=== PATIENT | female | born 1930 | race Caucasian/White ===

== ENCOUNTER 2018-07-15 11:36 | Inpatient (IN) | payer MEDICARE ==
--- NOTE | 2018-07-15 12:26 | RAD ---
2 VIEW RIGHT KNEE SERIES: Date: 07/15/18 INDICATION: Deformity with pain and injury. FINDINGS: There is a comminuted displaced and angulated distal right femoral fracture with approximately one sh aft width posterior displacement of major distal fracture fragment and apex lateral angulation. There are adjacent butterfly fracture fragments. Osseous structures are demineralized. IMPRESSION: Distal right femoral fracture with displacement, angulation, and comminution. Orthopedic consultation is advised. POS: FREIDA
--- NOTE | 2018-07-15 12:27 | RAD ---
2 VIEW RIGHT LEG SERIES: Date: 07/15/18 INDICATION: Pain with deformity and injury. FINDINGS: No acute fracture or dislocation of the tibial or fibula of the right lower extremity. There is osseo us demineralization. Vascular calcification present. IMPRESSION: No fracture of the right leg is identified. POS: FREIDA
--- NOTE | 2018-07-15 12:28 | RAD ---
2 VIEW RIGHT FEMUR: Date: 07/15/18 INDICATION: Pain with injury and deformity. FINDINGS: There is a distal right femoral fracture which is described on the concurrent knee radiograph as it i s located distally. Fracture is displaced and comminuted. Fracture site is centered at the distal james physis. Scattered degenerative change and osseous demineralization present. There is vascular calcification. IMPRESSION: Displaced and comminuted distal right femoral diaphyseal fracture. POS: FREIDA
[2018-07-15 12:56] LABS: Hemoglobin 13.2 g/dL (12.0-16.0); Mean Corpuscular HGB CONC 32.2 g/dL (32.0-36.0); Mean Corpuscular Hemoglobin 32.5 pg (27.0-31.0); Platelet Count 448 thou/uL (130-400); RBC Distribution Width 13.3 % (11.5-14.5); Red Blood Cell (RBC) Count 4.05 mill/uL (4.20-5.40); White Blood Cell (WBC) Count 15.4 thou/uL (4.8-10.8)
[2018-07-15 12:57] LABS: INR-International Normal Ratio 1.1; PTT 28.7 SEC (22.9-36.1); Prothrombin Time 13.9 SEC (12.0-14.7)
--- NOTE | 2018-07-15 13:06 | RAD ---
FRONTAL VIEW CHEST: INDICATIONS: Pain. FINDINGS: There is hyperinflation of the lungs with interstitial prominence. The cardiac silhouette is accentu ated by the portable technique. There is mild vascular prominence at each hilar region. Osseous deg enerative change and vascular calcification is present. IMPRESSION: Mild interstitial prominence of each lung may relate to chronic interstitial lung disease or, alterna tively, a mild component of edema. Correlate clinically. POS: FREIDA
[2018-07-15 13:13] LABS: ALT (SGPT) 21 U/L (8-55); AST (SGOT) 23 U/L (5-34); Albumin 4.3 g/dL (3.4-4.8); Alkaline Phosphatase 111 U/L (40-150); Anion Gap 13 mmol/L (10-20); BUN (Urea Nitrogen) 13 mg/dL (9.8-20.1); Band 17 % (5-11); Bilirubin, Total 0.9 mg/dL (0.2-1.2); Calc. Creatinine Clearance 0 mL/min (70-130); Calcium 9.3 mg/dL (7.8-10.44); Carbon Dioxide 29 mmol/L (23-31); Chloride 103 mmol/L (98-107); Estimated GFR-MDRD 64; Globulin 2.9 g/dL (2.4-3.5); Glucose 118 mg/dL (83-110); Lymphocytes 5 % (21-51); MDiff Complete? YES; Monocytes 5 % (0-10); Neutrophil 72 % (42-75); PLT Morphology Comment Appears Increased; Potassium 3.7 mmol/L (3.5-5.1); Protein, Total 7.2 g/dL (6.0-8.3); RBC Morphology Normal; Reactive Lymphocytes 1 % (0-10); Sodium 141 mmol/L (136-145)
[2018-07-15] MEDS ORDERED: Fentanyl 100 MCG/2 ML VIAL ONE (13:27)
[2018-07-15] MEDS ORDERED: CEFAZOLIN/Water 2 GM/20 ML SYRINGE SLOW IVP SCH (14:00)
[2018-07-15] MEDS ORDERED: Dextrose 5% in Water 1,000 ML IV PRN (14:48)
[2018-07-15] MEDS ORDERED: Ondansetron PF 4 MG/2 ML Vial IVP PRN (14:48)
[2018-07-15] MEDS ORDERED: Ondansetron ODT 4 MG TAB PO PRN (14:48)
[2018-07-15] MEDS ORDERED: Dextrose 50% Abboject 50 ML SYRINGE SLOW IVP PRN (14:48)
[2018-07-15] MEDS ORDERED: traMADol HCl 50 MG TAB PO PRN ×2 (14:51)
[2018-07-15] MEDS ORDERED: Acetaminophen 500 MG TAB PO SCH (15:00)
--- NOTE | 2018-07-15 15:30 | HP ---
DATE OF ADMISSION: 07/15/2018 HISTORY OF PRESENT ILLNESS: The patient is an 88-year-old woman who lives independently. The patient is highly functioning. At daily activities, I includes being able to take care of chores at home, she makes own meals, does all laundry. She is able to ambulate for 2-3 blocks without feel ing any shortness of breath. She does drive herself to her errands. The patient reported today walking at home when all of a sudden right knee "give away" and she fell d own without any head trauma. She immediately felt a sharp pain to her right leg which was obviously deformed. She was unable to b ear weight and as a result, she called through the telephone and called her son. She was then yakov t by ground EMS to the emergency department where she was evaluated. She had received some intraveno us analgesics prior to my visit in the emergency department. Currently, she denies any pain as right leg has been immobilized in a splint. Her Aviva coma scale is 15. His adult son and daughter-in- law area bedside. PAST MEDICAL HISTORY: She denies any previous medical problems. PAST SURGICAL HISTORY: The patient had 94 ago and has had no other surgeries since. SOCIAL HISTORY: She lives independently. She denies any cigarette smoking, ethanol did it or illici t drug abuse. FAMILY HISTORY: Noncontributory for this patient's age. PREHOSPITAL MEDICATIONS: None. ALLERGIES: Patient denies any known drug allergies. REVIEW OF SYSTEMS: A 10-point review of systems is essentially unremarkable except for as stated in past medical history and chief complaint. PHYSICAL EXAMINATION: GENERAL: This reveals an 88-year-old who appears stated age and is in no acute distress at the time of my evaluation. VITAL SIGNS: Includes blood pressure 157/84, pulse is 79, respiratory rate is 17, temperature is 97. 4 degrees Fahrenheit. Oxygen saturation is 98% on room air. 1. Pain level initially was 5/10. Currently, she rates her pain at 09/29/2017 retained. HEENT: Reveals normocephalic and atraumatic. Pupils are equal, round, and reactive to light and acc ommodation. Extraocular muscles are intact bilaterally. No sclerae icterus is present. Oral mucosa is pink and moist. No lesions are noted. NECK: Supple. No palpable lymphadenopathy or thyromegaly present. She has cervical spine is nonten eldon to palpation, active or passive range of motion. CHEST: Chest wall is stable. No gross deformities or step-offs are present. HEART: Reveals regular rate and rhythm, no murmurs or gallops auscultated. LUNGS: Clear to auscultation bilaterally. Breathing is regular and unlabored. ABDOMEN: Soft, nontender, nondistended. Liver and spleen nonpalpable below costal margin. EXTREMITIES: Reveal 2+ radial and pedal pulses bilaterally. She has no ankle edema present. right leg. There is a right knee immobilizer in place with provide the patient with adequate pain relief a nd comfort. MUSCULOSKELETAL: Reveals 5/5 muscle strength in bilateral upper and left lower extremities. Range o f motion about the right lower extremity was not performed due to obvious deformity. Thoracic and patel mbar spine are nontender to palpation. NEUROLOGICAL: Cranial nerves II-XII grossly intact bilaterally. The patient has no focal neurologic deficits present. PERTINENT LABORATORY DATA: Today includes a CBC with 15,400 white blood cells, hemoglobin and hemato crit is 13.2 and 40.9 respectively. Platelet count is 448,000. PTT and INR normal at 28.7 seconds and 1.1 respectively. Metabolic profile: Sodium 141, potassium 3 .7, chloride is 103, bicarbonate is 29, BUN is 13, creatinine 0.84, glucose is 118, total bilirubin i s 0.9, AST and ALT are normal at 23 and 21 respectively. Alkaline phosphatase is also normal at 111. I have personally reviewed all radiographic studies including a chest x-ray which is unremarkable for any acute pathology. X-ray of the right femur and knee were obtained and this shows complete displa basia comminuted distal one-third right supracondylar femur fracture. X-ray of the right tibia and fib maria esther are unremarkable for any fractures or dislocation. IMPRESSION: 1. Status post ground level fall. 2. Complete displaced distal one-third right supracondylar femur fracture. PLAN: 1. Orthopedic surgical consultation regarding the lower extremity fracture. 2. We will initiate nonpharmacological chemical VTE prophylaxis and provide patient with adequate pa in management. The patient will be admitted to the surgical floor while we will continue with physic al and occupational therapy as appropriate. 3. Postoperatively, we will ask PM&R to evaluate the patient for possible inpatient rehabilitation p ost-discharge. 4. We will also provide the patient with a prophylaxis against gastritis. The above findings and pl an have been discussed with the patient and her family at bedside. They all indicated understanding of information given. I answered their questions. The patient has given consent for this admission.
[2018-07-15 16:49] VITALS: BMI 21.4
[2018-07-15] MEDS: Acetaminophen 500 MG TAB PO SCH ×3 (17:40→23:53)
--- NOTE | 2018-07-15 18:39 | CON-2 ---
DATE OF CONSULTATION: 07/15/2018 REASON FOR CONSULTATION: We were asked by ER Trauma to see the patient. HISTORY OF PRESENT ILLNESS: The patient lives alone, was in her normal state of health when she stum bled and broke her right femur. The patient crawled across the floor to call family members. There was no loss of consciousness. She does not recall any other injuries. Only positive x-rays were her right femur. No numbness and tingling in the leg. Actually, the pain is fairly tolerable. PAST MEDICAL HISTORY: She is healthy, has not seen a regular doctor for approximately 40 years per t he patient. PAST SURGICAL HISTORY: She had a little skin cancer removed a year or so ago on her left forearm. MEDICATIONS: None. ALLERGIES: None. FAMILY HISTORY: Noncontributory. SOCIAL HISTORY: Retired. passed a few years back. No alcohol or nicotine. Drinks coffee d aily. REVIEW OF SYSTEMS: Healthy. Denies any chest pain, shortness of breath. No bowel or bladder proble ms. She continues to live alone and other than her right leg hurting mildly, she is doing okay. Res t of the review of systems is negative. PHYSICAL EXAMINATION: GENERAL: Well-nourished, well-developed female, resting in ER in [facility], in no acute distress. Spee ch clear. Affect is quite pleasant. Answering questions appropriately. She is alert and oriented x 3. Family is at bedside. HEENT: Normal exam. Face symmetric. Tongue midline. NECK: Supple. Trachea midline. RESPIRATORY: No distress. ABDOMEN: Soft, nontender. EXTREMITIES: Upper extremities, equal size, shape, symmetry, normal bulk and tone. Bilateral lower extremities, equal size, shape, symmetry, normal bulk and tone with the exception of her right femur area. It is a little tender, but once we straightened her out after a small dose of fentanyl, she di d not have much pain with straightening her leg and putting the immobilizer on. Pulses are equal to bilateral lower extremities as were sensations. ASSESSMENT: Fall with ensuing right femur fracture. PLAN: I spoke with the family extensively about risks and benefits of surgery, outcomes of surgery. The patient and family understand. Their questions have been answered. They are amenable to go for th with surgery. I also discussed with the family briefly that there may be some need for inpatient rehab or skilled type of rehab. The patient is not overtly happy with this discussion, but she has t o be safe before she goes home and I let the family know this also. I informed the family that she w ill get some physical therapy and occupational therapy while she is in here, get case management to s ee her, probably evaluated per rehab and we will see how she does after surgery. I do think and I clark ve reiterated this to the family and the patient that she will probably need some aftercare so she is safe to go home. We will discuss this again after surgery.
[2018-07-15] MEDS: Famotidine 20 MG TAB PO SCH (20:07)
[2018-07-15] MEDS: Famotidine/PF 20 mg/2ml Vial SLOW IVP SCH (20:07)
[2018-07-16] MEDS: Acetaminophen 500 MG TAB PO SCH ×4 (04:27→23:29)
[2018-07-16 05:18] LABS: #Basophils 0.1 thou/uL (0.0-0.2); #Monocytes 0.6 thou/uL (0.11-0.59); #Neutrophils 3.8 thou/uL (1.40-6.50); %Eosinophils 0.9 % (0.0-10.0); %Lymphocytes 17.5 % (21.0-51.0); %Monocytes 10.9 % (0.0-10.0); %Neutrophils 68.6 % (42.0-75.0); Mean Corpuscular HGB CONC 32.9 g/dL (32.0-36.0); Mean Corpuscular Hemoglobin 33.1 pg (27.0-31.0); Mean Platelet Volume 7.1 fL (7.4-10.4); Platelet Count 312 thou/uL (130-400); RBC Distribution Width 13.2 % (11.5-14.5); Red Blood Cell (RBC) Count 3.33 mill/uL (4.20-5.40); White Blood Cell (WBC) Count 5.5 thou/uL (4.8-10.8)
[2018-07-16 05:28] LABS: Anion Gap 10 mmol/L (10-20); BUN (Urea Nitrogen) 12 mg/dL (9.8-20.1); Calc. Creatinine Clearance 40 mL/min (70-130); Calcium 8.6 mg/dL (7.8-10.44); Carbon Dioxide 27 mmol/L (23-31); Chloride 105 mmol/L (98-107); Estimated GFR-MDRD 72; Glucose 94 mg/dL (83-110); Potassium 3.7 mmol/L (3.5-5.1); Sodium 138 mmol/L (136-145)
[2018-07-16] MEDS: Famotidine/PF 20 mg/2ml Vial SLOW IVP SCH (08:51)
[2018-07-16] MEDS: Famotidine 20 MG TAB PO SCH ×2 (08:51→20:12)
[2018-07-16] MEDS: Sodium Chloride 0.9% 1,000 ML IV SCH (11:18)
[2018-07-16] MEDS ORDERED: ePHEDrine/0.9% NaCl/PF SYRINGE 50 mg/10 ml ONE (11:51)
[2018-07-16] MEDS ORDERED: Ondansetron PF 4 MG/2 ML Vial ONE (11:51)
[2018-07-16] MEDS ORDERED: Lidocaine 1% PF 5 ML VIAL ONE (11:51)
[2018-07-16] MEDS ORDERED: PROPOFOL 200 MG/20 ML VIAL ONE (11:51)
--- NOTE | 2018-07-16 12:55 | PRG ---
DATE OF SERVICE: 07/16/2018. SUBJECTIVE: Ms. Artis is an 88-year-old female complaining all of her own ADLs, who was admitted to the Trauma Service yesterday onto the surgery anne with a right distal femur fracture secondary to fall. The patient is scheduled for the operative theater at 1400 hours today. She is in good spirits, hemodynamically stable. She initially had a leukocytosis that has subsequently resolved. Her hemoglobin has remained stable. Her chemistry is unremarkable this morning. She is 97% on room air and vital signs have been stable. Pain seems to be controlled and she is n.p.o. after midnight. PHYSICAL EXAMINATION: VITAL SIGNS: Blood pressure is 146/69, temperature is 97.9. She is breathing 16 times a minute on room air and heart rate of 70 with saturation of 97%. GENERAL: This is an 88-year-old female sitting up in bed, in no acute distress. HEENT: Normocephalic, atraumatic. Trachea is midline. RESPIRATORY: Equal rise and fall. No respiratory distress. CARDIOVASCULAR: Regular rate and rhythm. ABDOMEN: Soft. MUSCULOSKELETAL: She has pain to the right leg. She does have sensation in all extremities and pulses noted with a warm distal extremities, specifically in the right lower. NEUROLOGIC: Alert and oriented to person, place, time, and event. No deficits are appreciated. Family is at the bedside. LABORATORY DATA: White blood cell count is 5.5, platelets 312, hemoglobin is 11.0 and hematocrit is 33.5. Sodium is 138, potassium is 3.7, chloride is 105, CO2 is 27, BUN is 12, creatinine 0.76 and a glucose of 94. ASSESSMENT AND PLAN: 1. Distal femur fracture. Orthopedics planning operative repair today at 1400 hours. 2. Add normal saline at 75 mL per hour until taking p.o. after surgery to gentle hydrate Ms. Artis. 3. Monitor hemodynamics and we will repeat lab work in the morning x1. If this remains stable will suspend. 4. PT, OT after surgery, start dvt prophy after surgery, likely tomorrow. 5. Continue all other supportive care, pain management. If patient tolerates we will be able to start her on regular diet and suspend the IV fluids after surgery today. This patient was seen with Dr. Petersen and the plan can be updated as needed. MICHAELD
[2018-07-16] MEDS ORDERED: Acetaminophen 500 MG TAB ONE (14:07)
[2018-07-16] MEDS ORDERED: Fentanyl 100 MCG/2 ML VIAL ONE (14:49)
[2018-07-16] MEDS ORDERED: CEFAZOLIN/Water 2 GM/20 ML SYRINGE ONE (14:51)
[2018-07-16] MEDS ORDERED: Promethazine HCl 25 MG/ML VIAL SLOW IVP PRN (16:26)
[2018-07-16] MEDS ORDERED: Promethazine HCl 25 MG/ML VIAL IM PRN (16:26)
[2018-07-16] MEDS ORDERED: Ondansetron HCl/PF 4 MG/2 ML Vial IVP PRN (16:26)
--- NOTE | 2018-07-16 17:55 | RAD ---
RIGHT FEMORAL RADIOGRAPHS TWO VIEWS: 07/16/18 PROVIDED CLINICAL HISTORY: Postop. FINDINGS: Comparison 07/15/18. Spot fluoroscopic frontal and lateral views of the right femur demonstrate retrograde femoral nail wi th proximal and distal interlocking screws transfixing previously described femoral diaphyseal fractu re with resultant improved alignment. IMPRESSION: As above. POS: FREIDA
--- NOTE | 2018-07-16 21:28 | OP ---
DATE OF PROCEDURE: 07/16/2018 SURGEON: Ramesh Ortiz M.D. CASINO ATTENDANT: Tam Sánchez PA-C. ESTIMATED BLOOD LOSS: 100 mL. COMPLICATIONS: None. INDICATIONS: Ms. Artis is an 88-year-old female who fell. She fractured the right distal femur. She was indicated for intramedullary nail to restore anatomic alignment and promote healing. Risks have been reviewed in detail. She elected to proceed with the operation. DESCRIPTION OF PROCEDURE: The patient was identified in the preoperative holding area. Her correct extremity was marked. She was carried to the operating room. She was positioned supine. General an esthesia was induced. A multidisciplinary timeout was performed. The right lower extremity was prep ped and draped in sterile fashion. We began the procedure with a small incision over the knee. It dissected down to the subcutaneous ti ssues. A medial parapatellar arthrotomy was created. We then inserted a guidewire in the trochlea u sing intraoperative x-ray. We overdrilled the guidewire. We then placed our ball-tip guidewire past the fracture. At this point, we proceeded to reduce the fracture and held our reduction manually. We then reamed from an 8.5 reamer up to a size 12. At this point, we placed a 340 mm x 11 mm nail. We placed 2 distal cross lock screws and 1 proximal cross lock screw rigidly fixing the bone. At thi s point, we took final x-ray images in orthogonal planes. We then proceeded to close all wounds. We thoroughly irrigated. We closed with 0 Vicryl suture, 2-0 Vicryl suture and nylon for the skin. A sterile dressing was applied. The patient was taken to the recovery room in good condition. IMPLANTS: Synthes retrograde femoral nail size 340 mm x 11 mm with cross lock screws.
[2018-07-17] MEDS: Sodium Chloride 0.9% 1,000 ML IV SCH (00:23)
[2018-07-17] MEDS: Acetaminophen 500 MG TAB PO SCH ×4 (05:09→23:25)
[2018-07-17 07:43] LABS: #Basophils 0.1 thou/uL (0.0-0.2); #Lymphocytes 1.1 thou/uL (1.20-3.40); #Monocytes 0.5 thou/uL (0.11-0.59); #Neutrophils 5.6 thou/uL (1.40-6.50); %Basophils 1.7 % (0.0-1.0); %Eosinophils 0.6 % (0.0-10.0); %Lymphocytes 14.5 % (21.0-51.0); %Monocytes 6.6 % (0.0-10.0); %Neutrophils 76.5 % (42.0-75.0); Hemoglobin 10.1 g/dL (12.0-16.0); Mean Corpuscular HGB CONC 33.5 g/dL (32.0-36.0); Mean Corpuscular Hemoglobin 33.5 pg (27.0-31.0); Mean Platelet Volume 6.6 fL (7.4-10.4); Platelet Count 244 thou/uL (130-400); RBC Distribution Width 13.4 % (11.5-14.5); White Blood Cell (WBC) Count 7.4 thou/uL (4.8-10.8)
[2018-07-17 08:02] LABS: Anion Gap 10 mmol/L (10-20); BUN (Urea Nitrogen) 13 mg/dL (9.8-20.1); Calc. Creatinine Clearance 40 mL/min (70-130); Calcium 8.3 mg/dL (7.8-10.44); Carbon Dioxide 26 mmol/L (23-31); Chloride 107 mmol/L (98-107); Estimated GFR-MDRD 72; Glucose 95 mg/dL (83-110); Magnesium 1.7 mg/dL (1.6-2.6); Phosphorus 2.8 mg/dL (2.3-4.7); Sodium 139 mmol/L (136-145)
[2018-07-17] MEDS ORDERED: Famotidine/PF 20 mg/2ml Vial SLOW IVP SCH (09:00)
[2018-07-17] MEDS ORDERED: Senokot 8.6 MG TAB PO SCH (13:15)
--- NOTE | 2018-07-17 16:20 | PRG ---
DATE OF SERVICE: 07/17/2018 SUBJECTIVE: The patient is hospital day #2, postop day #1, status post ground level fall in which dick betancur sustained a right distal femur fracture. She underwent open reduction internal fixation yesterday. She tolerated the procedure well. This morning, she is actually working with physical therapy. Wh viv Hayward came in the room, she is already transferred out of her bed to the bedside chair without difficu lty. For placement, the patient has chosen to go home with Home Health. We will start arranging thi s with the likelihood that the patient will be discharged to home tomorrow. PHYSICAL EXAMINATION: VITAL SIGNS: Temperature is 98.5, heart rate 62, blood pressure 130/67, respirations 13, oxygen satu ration 94% on room air. GENERAL: The patient is resting comfortably in a chair beside her bed. She is awake, alert, oriente d. HEENT: Unremarkable. LUNGS: Clear to auscultation with good inspiratory and expiratory effort. HEART: Regular rate and rhythm. ABDOMEN: Soft, flat, nontender with active bowel sounds. EXTREMITIES: Neurovascularly intact x4. Right lower extremity is in a knee immobilizer. LABORATORY DATA: White blood cell count 7.4, hemoglobin 10.1, hematocrit 30.0, platelets 244. Sodiu m 139, potassium 4.0, chloride 107, CO2 of 26, BUN 13, creatinine 0.76, glucose 95, magnesium 1.7, ph osphorus 2.8. There are no radiographs to review this morning. ASSESSMENT AND PLAN: 1. Status post ground level fall. 2. Status post open reduction internal fixation of right distal femur fracture. Plan will be to continue supportive care. Arranged home DME and [facility]
[2018-07-17] MEDS: Senokot 8.6 MG TAB PO SCH (21:34)
[2018-07-18 05:11] LABS: #Basophils 0.1 thou/uL (0.0-0.2); #Eosinphils 0.1 thou/uL (0.0-0.7); #Lymphocytes 1.1 thou/uL (1.20-3.40); #Monocytes 0.4 thou/uL (0.11-0.59); #Neutrophils 3.9 thou/uL (1.40-6.50); %Basophils 1.4 % (0.0-1.0); %Eosinophils 1.5 % (0.0-10.0); %Lymphocytes 19.4 % (21.0-51.0); %Monocytes 7.2 % (0.0-10.0); %Neutrophils 70.5 % (42.0-75.0); Hemoglobin 8.8 g/dL (12.0-16.0); Mean Corpuscular HGB CONC 33.1 g/dL (32.0-36.0); Mean Corpuscular Hemoglobin 33.6 pg (27.0-31.0); Mean Platelet Volume 7.1 fL (7.4-10.4); Platelet Count 184 thou/uL (130-400); RBC Distribution Width 13.2 % (11.5-14.5); Red Blood Cell (RBC) Count 2.61 mill/uL (4.20-5.40); White Blood Cell (WBC) Count 5.5 thou/uL (4.8-10.8)
[2018-07-18 05:18] LABS: Anion Gap 7 mmol/L (10-20); BUN (Urea Nitrogen) 15 mg/dL (9.8-20.1); Calc. Creatinine Clearance 40 mL/min (70-130); Calcium 8.1 mg/dL (7.8-10.44); Carbon Dioxide 28 mmol/L (23-31); Chloride 107 mmol/L (98-107); Estimated GFR-MDRD 72; Glucose 118 mg/dL (83-110); Magnesium 1.8 mg/dL (1.6-2.6); Phosphorus 2.6 mg/dL (2.3-4.7); Potassium 3.9 mmol/L (3.5-5.1); Sodium 138 mmol/L (136-145)
[2018-07-18] MEDS: Acetaminophen 500 MG TAB PO SCH ×4 (05:23→23:09)
[2018-07-18] MEDS: Bisacodyl 10 MG SUPP PR SCH (09:53)
[2018-07-18] MEDS: Senokot 8.6 MG TAB PO SCH ×2 (11:15→17:38)
[2018-07-18] MEDS ORDERED: Polyethylene Glycol 3350 17 GM Packet PO SCH (11:30)
[2018-07-18] MEDS: Docusate 100 MG CAP PO SCH (13:31)
--- NOTE | 2018-07-18 16:51 | PRG ---
DATE OF SERVICE: 07/18/2018 SUBJECTIVE: The patient is currently on the surgical floor. She is hospital day #3, postop day #2 s tatus post a ground level fall in which she sustained a right distal femur fracture. She underwent o pen reduction internal fixation of same. She tolerated this procedure well. She has been working [facility] physical and occupational therapy and this morning she is actually able to walk 18 feet. She stat es that her pain is controlled. She is tolerating a diet. The patient has chosen to go home with [facility] for her disposition. She does not quite appear ready to be going home yet though the famil y does say that they have all of her DME arranged. PHYSICAL EXAMINATION: VITAL SIGNS: Temperature is 98.1, heart rate 78, blood pressure 132/66, respirations 20, oxygen satu ration is 96% on room air. GENERAL: The patient is resting comfortably in bed. She is awake, alert, and oriented. HEENT: Unremarkable. LUNGS: Clear to auscultation with good inspiratory and expiratory effort. HEART: Regular rate and rhythm. ABDOMEN: Soft, flat, nontender with active bowel sounds. EXTREMITIES: Neurovascularly intact x4. Postop dressing is clean, dry, and intact. The patient is also mobilized in a knee immobilizer on the right lower extremity. LABORATORY DATA: White blood cell count 5.5, hemoglobin 8.8, hematocrit 26.5, platelets 184. Sodium 138, potassium 3.9, chloride 107, CO2 of 28, BUN 15, creatinine 0.76, glucose 118, magnesium 1.8, ph osphorus 2.6. There are no radiographs to review this morning. ASSESSMENT AND PLAN: 1. Status post ground level fall. 2. Status post open reduction internal fixation of right distal femur fracture. Plan be to continue supportive care. Once it was felt that the patient is safe to be discharged home , we will discharge her home. This could be as early as tomorrow or Friday. The evaluation and exam ination were discussed with Dr. Petersen this morning.
[2018-07-19] MEDS: Acetaminophen 500 MG TAB PO SCH ×2 (05:22→10:17)
[2018-07-19 07:43] VITALS: BP 150/66; TEMP 98.3
[2018-07-19] MEDS: Senokot 8.6 MG TAB PO SCH (08:43)
[2018-07-19] MEDS: Docusate 100 MG CAP PO SCH (08:44)
[2018-07-19] MEDS: Bisacodyl 10 MG SUPP PR SCH (08:44)
[2018-07-19] MEDS ORDERED: Polyethylene Glycol 3350 17 GM Packet PO SCH (09:00)
--- NOTE | 2018-07-25 13:41 | EKG ---
Test Reason : Blood Pressure : / mmHG Vent. Rate : 078 BPM Atrial Rate : 078 BPM P-R Int : 136 ms QRS Dur : 078 ms QT Int : 384 ms P-R-T Axes : 080 -09 089 degrees QTc Int : 437 ms Sinus rhythm with occasional Premature ventricular complexes Nonspecific ST and T wave abnormality Abnormal ECG Confirmed by JORDAN MCDANIEL DO ([id number]), magazine editor SYEDA PAULINO ([id number]) on 07/25/2018 1:41:11 PM Referred By: Confirmed By:JORDAN MCDANIEL DO
== END 2018-07-19 10:42 | disposition home health service (06) | DRG 482 ==
LOC: ERS 11:36 → SURG A 13:15 → SJJU 07-17 09:15 → SURG A 07-17 09:15
PROVIDERS: ADMIT Surgery; ATTEND Surgery
PROC: 0QSB06Z Reposition Right Lower Femur with Intramedullary Internal Fixation Device, Open Approach (ICD-10-PCS; principal; 2018-07-16)
DX: S72.451A Displaced supracondylar fracture without intracondylar extension of lower end of right femur, initial encounter for closed fracture (principal); W19.XXXA Unspecified fall, initial encounter; Y92.008 Other place in unspecified non-institutional (private) residence as the place of occurrence of the external cause; Z85.828 Personal history of other malignant neoplasm of skin
CPT/HCPCS: 36415; 51702; 71045; 76001; 80048; 80053; 83735; 84100; 85025; 85610; 85730; 86850; 86900; 86901; 93005; 96374; C1713; C1769; G8978-GP-CL; G8979-GP-CI; G8987-GO-CK; G8988-GO-CJ; J2001; J2405; J2704; J3010; S0028

== ENCOUNTER 2019-09-16 23:21 | Inpatient (IN) | payer MEDICARE ==
--- NOTE | 2019-09-16 23:50 | RAD ---
EXAM: AP pelvis INDICATIONS: Trauma. Fall with injury to hip COMPARISON: None. FINDINGS: Intertrochanteric fracture left hip with mild displacement. Pelvis appears intact. Intramed ullary sharad right femur. IMPRESSION: Left hip fracture
--- NOTE | 2019-09-16 23:51 | RAD ---
Left hip:2 views INDICATIONS:Injury with pain COMPARISON:None FINDINGS: Intertrochanteric fracture left hip with mild displacement. No soft tissue abnormality. IMPRESSION: Left hip fracture
--- NOTE | 2019-09-16 23:51 | RAD ---
Portable chest: HISTORY: Hip fracture COMPARISON: none FINDINGS: Lung beltran are clear. Heart and mediastinum appear unremarkable. Vascularity is normal. Visualized osseous structures unremarkable. IMPRESSION: No acute finding
[2019-09-17 00:02] LABS: #Basophils 0.2 thou/uL (0.0-0.2); #Eosinphils 0.1 thou/uL (0.0-0.7); #Lymphocytes 1.1 thou/uL (1.20-3.40); #Monocytes 0.6 thou/uL (0.11-0.59); #Neutrophils 8.9 thou/uL (1.40-6.50); %Basophils 1.5 % (0.0-1.0); %Eosinophils 0.8 % (0.0-10.0); %Lymphocytes 10.2 % (21.0-51.0); %Monocytes 5.7 % (0.0-10.0); %Neutrophils 81.9 % (42.0-75.0); Hemoglobin 13.4 g/dL (12.0-16.0); Mean Corpuscular Volume 94.2 fL (78.0-98.0); Platelet Count 555 thou/uL (130-400); RBC Distribution Width 12.5 % (11.5-14.5); White Blood Cell (WBC) Count 10.9 thou/uL (4.8-10.8)
[2019-09-17 00:13] LABS: Phosphorus 3.1 mg/dL (2.3-4.7)
[2019-09-17 00:15] LABS: ALT (SGPT) 15 U/L (8-55); AST (SGOT) 20 U/L (5-34); Albumin 4.4 g/dL (3.4-4.8); Alkaline Phosphatase 170 U/L (40-110); Anion Gap 14 mmol/L (10-20); BUN (Urea Nitrogen) 21 mg/dL (9.8-20.1); Bilirubin, Total 0.5 mg/dL (0.2-1.2); Calc. Creatinine Clearance 0 mL/min (70-130); Calcium 9.8 mg/dL (7.8-10.44); Carbon Dioxide 27 mmol/L (23-31); Chloride 103 mmol/L (98-107); Estimated GFR-MDRD 57; Globulin 2.8 g/dL (2.4-3.5); Glucose 131 mg/dL (83-110); Magnesium 2.2 mg/dL (1.6-2.6); Potassium 4.6 mmol/L (3.5-5.1); Protein, Total 7.2 g/dL (6.0-8.3); Sodium 139 mmol/L (136-145)
[2019-09-17] MEDS ORDERED: hydrALAZINE 20 MG/ML VIAL ONE (00:38)
[2019-09-17] MEDS ORDERED: Dextrose 5% in Water 1,000 ML IV PRN (00:49)
[2019-09-17] MEDS ORDERED: hydrALAZINE 20 MG/ML VIAL SLOW IVP PRN (00:49)
[2019-09-17] MEDS ORDERED: Dextrose 50% Abboject 50 ML SYRINGE SLOW IVP PRN (00:49)
[2019-09-17] MEDS ORDERED: Morphine 2 MG/ML SYRINGE SLOW IVP PRN (00:49)
[2019-09-17] MEDS ORDERED: Ondansetron PF 4 MG/2 ML Vial IVP PRN (00:49)
[2019-09-17] MEDS ORDERED: Cyclobenzaprine 10 MG TAB PO PRN (00:51)
[2019-09-17] MEDS ORDERED: traMADol HCl 50 MG TAB PO PRN (00:51)
[2019-09-17] MEDS ORDERED: Sodium Chloride 0.9% 1,000 ML IV SCH (01:00)
--- NOTE | 2019-09-17 01:22 | HP ---
TRAUMA SURGEON: Dr. Shin. CONSULTING PHYSICIAN: Dr. Ortiz. HISTORY OF PRESENT ILLNESS: The patient is an 89-year-old female, presented to the emergency department via EMS after a mechanical fall at home. The patient reported she got up from her recliner and was trying to grab a hold of her walker, but she reports her legs gave out and she subsequently fell onto the ground. She denies any dizziness, syncopal or near syncopal type symptoms. She denies any loss of consciousness or anticoagulation use. She only reports she has pain in her left hip. Denies numbness or tingling as well as back pain or C-spine pain. REVIEW OF SYSTEMS: All additional 10-point review of systems is negative except as indicated above. PAST MEDICAL HISTORY: Hypertension. PAST SURGICAL HISTORY: Right femur fixation, and bilateral cataract surgery. SOCIAL HISTORY: The patient lives at home alone. She uses a walker to get around. She denies tobacco, drug, or alcohol use. MEDICATIONS: 1. Lisinopril. 2. Amlodipine. 3. Aspirin. 4. Vitamin C. 5. Senokot. ALLERGIES: NO KNOWN DRUG ALLERGIES. PHYSICAL EXAMINATION: VITAL SIGNS: Temperature 97.7, pulse 78, respirations 16, oxygen saturation 98% on room air, blood pressure 185/81. PRIMARY SURVEY: Airway intact. Adequate breath sounds bilaterally. 2+ pulses in the bilateral radials, femorals, and DPs. GCS is 15. Gross motor and sensation are intact. No lacerations, bruising, or external bleeding. SECONDARY SURVEY: HEAD: Normocephalic and atraumatic. No gross palpable skull deformities or tenderness. PUPILS: 3-2, equal, round, reactive to light bilaterally. ENT: No hemotympanum. No epistaxis. No septal hematoma. Midface stable to manipulation. No blood in the oropharynx. Dentition is intact. No anterior neck injury/crepitus/tenderness. C-SPINE: No step-offs or deformities, nontender. C-collar not in place. CHEST: Nontender. No crepitus. No abrasions or ecchymosis. Equal chest movement. ABDOMEN: Soft, nontender, nondistended. PELVIS: Stable to palpation. Tenderness over the left lateral thigh and pelvis. No abrasions or ecchymosis. RECTAL: Deferred. GENITOURINARY: Deferred. EXTREMITIES: No gross deformities. No abrasions or ecchymosis noted. Tenderness over the left thigh and lateral hip, 2+ pulses in the bilateral radials, femorals, and DPs. BACK/SPINE: No step-offs or deformities or tenderness to palpation of the thoracic or lumbar spine. No abrasions or ecchymosis noted. NEUROLOGIC: 5/5 strength in bilateral veterinary technician assistant, plantar flexion, dorsiflexion. Gross normal sensation x4 extremities. LABORATORY FINDINGS: White count 10.9, hemoglobin 13.4, hematocrit 40.5, platelets 555. Sodium 139, potassium 4.6, chloride 103, bicarb 27, BUN 21, creatinine 0.93, glucose 131, phosphorus 3.1, magnesium 2.2, total bilirubin 0.5, AST 20, ALT 15, alkaline phosphatase 170. DIAGNOSTIC FINDINGS: Chest x-ray demonstrates no acute findings. X-ray of the pelvis demonstrates left hip fracture. X-ray of the left hip demonstrates left hip fracture. ASSESSMENT: 1. Status post mechanical fall from standing. 2. Left hip fracture. 3. Hypertension, uncontrolled. 4. History of hypertension. PLAN: The patient will receive 10 mg of IV hydralazine in the emergency department. We will closely monitor her blood pressure. She will receive both scheduled and p.r.n. IV and oral pain medications. She will be n.p.o. for the OR later today with Orthopedic Surgery. Postoperatively, she will work with Physical and Occupational Therapy and likely need placement in acute rehab facility. We will restart her home medications as clinically indicated. This patient was discussed with Dr. Shin after this dictation. Job ID: [id number]
[2019-09-17] MEDS: traMADol HCl 50 MG TAB PO PRN ×2 (02:05→21:06)
[2019-09-17 02:32] VITALS: BMI 20.9
[2019-09-17] MEDS: Acetaminophen 1,000 MG in Premix Bag 1 BAG IVPB SCH ×5 (05:37→23:28)
[2019-09-17] MEDS: Ibuprofen 200 MG TAB PO SCH ×3 (05:44→21:05)
[2019-09-17] MEDS ORDERED: Ibuprofen 600 MG TAB PO SCH (06:00)
[2019-09-17] MEDS ORDERED: CEFAZOLIN 2 GM in Premix Bag 1 BAG IVPB SCH (07:45)
--- NOTE | 2019-09-17 08:15 | CON ---
DATE OF CONSULTATION: 09/17/2019 This is Jesusita Noriega PA-C dictating a report for Jean Pierre Gao MD. REQUESTING PHYSICIAN: Trauma Services. CONSULTING PHYSICIAN: Jean Pierre Gao MD REASON FOR CONSULTATION: Left hip fracture. HISTORY OF PRESENT ILLNESS: This is an 89-year-old female who presented to the emergency department by way of EMS after a mechanical fall at home. The patient lives alone and states that she got up from her recliner, was trying to grab a hold of her walker, but she states that her legs gave out and she fell to the ground. Workup in the emergency department revealed a left intertrochanteric femur fracture. She denied any syncopal symptoms. She denied any head injury or loss of consciousness. We have been consulted for the hip fracture. Currently at bedside, the patient denies any other pain. She denies any numbness or tingling. PAST MEDICAL HISTORY: Significant for hypertension. PAST SURGICAL HISTORY: Significant for right femur nailing in June of 2018, , and bilateral cataract surgeries. SOCIAL HISTORY: The patient lives at home alone. She does use a walker to get around. She has a son who lives nearby. She denies any tobacco, drug, or alcohol use. FAMILY HISTORY: Reviewed and noncontributory. REVIEW OF SYSTEMS: Ten-point review of systems conducted and otherwise negative except for stated above. PHYSICAL EXAMINATION: Shows, VITAL SIGNS: Including temperature of 98.5, pulse is 75, respiratory rate of 16, O2 saturation 97% on room air, and blood pressure of 122/56. GENERAL: The patient is awake and alert. She is in no apparent distress. She is lying supine in bed at this time. No family is in the room with her. HEENT: Head is normocephalic and atraumatic. NECK: Supple. Trachea midline. LUNGS: Breathing nonlabored. EXTREMITIES: The left lower extremity was evaluated. SKIN: Intact, free of lesions and rashes. No ecchymosis noted at this time. No significant leg shortening. She is able to move her foot and toes. Distal neurovascular status intact. All other extremities were evaluated, and no obvious injuries or deformities were noted. RADIOGRAPHIC IMAGING: Including 2 views of the left hip demonstrate a minimally-displaced left intertrochanteric femur fracture. LABORATORY DATA: Show a white blood cell count of 10.8, hemoglobin of 13.4, hematocrit of 40.5, and a platelet count of 555. Chemistry panel is within normal limits. ASSESSMENT: Left intertrochanteric femur fracture. PLAN: At this time, we will plan for surgical intervention this afternoon in order to restore her anatomy and promote function. We will plan for a DHS to the left intertrochanteric femur fracture. The patient has been n.p.o. since last night. We will get her consented and get this set up for her. We will likely operate on her later this afternoon. Risks, benefits, and alternatives discussed with the patient. She verbalized understanding. Job ID: [id number]
[2019-09-17] MEDS ORDERED: FLU VACC TS2019-20(65YR UP)/PF 180 MCG/0.5 ML SYRINGE IM ONE (09:00)
[2019-09-17] MEDS ORDERED: Famotidine/PF 20 mg/2ml Vial SLOW IVP SCH (09:00)
[2019-09-17] MEDS: Senokot S 8.6-50 MG TAB PO SCH ×2 (10:05→21:06)
[2019-09-17] MEDS: Amlodipine 5 MG TAB PO SCH (10:05)
[2019-09-17] MEDS: Lisinopril 20 MG TAB PO SCH ×2 (10:05→21:06)
[2019-09-17] MEDS ORDERED: PROPOFOL 200 MG/20 ML VIAL ONE (10:44)
[2019-09-17] MEDS ORDERED: Lidocaine 1% PF 5 ML VIAL ONE (10:44)
[2019-09-17] MEDS ORDERED: PHENYLEPHRINE-NS 100 MCG/ML 10 ML SYRINGE ONE (10:44)
[2019-09-17] MEDS ORDERED: Rocuronium Bromide 10 MG/ML (10ML VIAL) ONE (10:44)
--- NOTE | 2019-09-17 13:03 | PRG ---
DATE OF SERVICE: 09/17/2019 SUBJECTIVE: The patient remains on the surgical floor. The patient sustained a left intertrochanteric femur fracture after a mechanical fall at home. The patient has been n.p.o. since midnight with maintenance IV fluids. The patient reports that her pain is well controlled, and she slept very well last night. OBJECTIVE: VITAL SIGNS: Temperature 98.5, pulse 75, respirations 16, SpO2 of 97% on room air, blood pressure 122/56. GENERAL: Elderly female, well appearing, awake, alert, sitting up in hospital bed. RESPIRATORY: Equal chest rise and fall. No respiratory distress. CARDIAC: Regular rate. Regular rhythm. ABDOMEN: Soft, nontender, and nondistended. EXTREMITIES: Tenderness to left hip and thigh. Distal pulses intact. No focal deficits. NEUROLOGIC: Awake, alert, and oriented. No deficits. Strength 5/5 in all extremities. LABORATORY DATA: There are no new labs to evaluate today. DIAGNOSTIC STUDIES: There are no new diagnostics to review. ASSESSMENT: 1. Status post mechanical fall from standing. 2. Left intertrochanteric hip fracture. 3. Hypertension, controlled. PLAN: Continue n.p.o. and maintenance IV fluids. Orthopedic Surgery plans to take the patient to the OR for repair of her left hip. We will have Physical and Occupational Therapy evaluate and treat postoperatively. A post-acute screen has been placed. The patient was examined by Dr. Petersen during morning rounds. Plan was discussed with the patient and family, who agree. Job ID: [id number]
[2019-09-17] MEDS: Polyethylene Glycol 3350 17 GM Packet PO SCH (14:51)
[2019-09-17] MEDS ORDERED: Fentanyl 100 MCG/2 ML VIAL ONE (17:10)
[2019-09-17] MEDS: CEFAZOLIN 2 GM in Premix Bag 1 BAG IVPB SCH (21:07)
--- NOTE | 2019-09-17 21:34 | RAD ---
LEFT HIP THREE VIEWS: 09/17/19 HISTORY: Intraoperative film. These are C-arm films which show open reduction and internal fixation with a compression screw and si de plate. Bony alignment appears satisfactory. IMPRESSION: Open reduction internal fixation of intertrochanteric fracture. POS: FREIDA
--- NOTE | 2019-09-17 23:18 | PRG ---
DATE OF SERVICE: SUBJECTIVE: The patient was seen this evening postoperatively after fixation of her left intertrochanteric femur fracture. She reported she was starting to feel pain in her left hip and would like additional pain medications. She had just finished dinner and reported she tolerated that well. Harris is in place with urine in bag. OBJECTIVE: VITAL SIGNS: Temperature 98.2, pulse 66, respirations 16, oxygen saturation 97% on room air, and blood pressure 150/69. GENERAL: Well-appearing elderly female, sitting up in bed with no signs of acute distress. PULMONARY: Equal chest rise and fall. No signs of acute respiratory distress. ASSESSMENT: 1. Status post mechanical fall from standing. 2. Left intertrochanteric femur fracture, status post repair. 3. Acute traumatic pain. 4. History of hypertension. PLAN: Continue current regular diet and pain medications. Discontinue normal saline. Nursing was asked to give the patient p.r.n. oral tramadol. Continue home lisinopril and amlodipine. Continue physical and occupational therapy. The patient will likely need placement at rehab facility. Job ID: [id number]
--- NOTE | 2019-09-18 01:33 | OP ---
DATE OF PROCEDURE: 09/17/2019 PREOPERATIVE DIAGNOSIS: Left intertrochanteric femur fracture. POSTOPERATIVE DIAGNOSIS: Left intertrochanteric femur fracture. PROCEDURE PERFORMED: Open reduction and internal fixation of left intertrochanteric femur fracture. ANESTHESIA: General. MORTGAGE SPECIALIST: Tam Sánchez PA-C. IMPLANT: Synthes DHS 3-hole 135-degree sideplate with 85 mm hip screw. ESTIMATED BLOOD LOSS: 50 mL. COMPLICATIONS: None. DRAINS: None. SPECIMEN: None. OUTCOME: Near-anatomic alignment. INDICATIONS FOR PROCEDURE: The patient is an 89-year-old lady status post ground level fall at home sustaining a high intertrochanteric femur fracture on the left side. After discussion with the patient and her family including risks and benefits, we decided to proceed with open reduction and internal fixation to facilitate mobility and permit mobilization and pain control. Informed consent has been obtained. I believe all questions have been answered. DESCRIPTION OF PROCEDURE: The patient was brought to the operating room and a time-out performed followed by induction of general anesthesia. Next, the patient was positioned on the fracture table with the injured extremity held in longitudinal traction and slight internal rotation. AP and lateral C-arm images were then obtained that confirmed reduction of the fracture. Next, a sterile prep and drape was performed in the left lateral thigh. Under C-arm localization, a lateral skin incision was made distal to the greater trochanter. After skin was sharply incised, dissection was carried down to the fascia crissy. This structure was incised in line with the skin incision and then reflected anteriorly and posteriorly revealing the underlying fascia of the vastus lateralis. This fascia was also incised in line with the skin incision and then the muscle belly was swept off the posterior leaflet of the fascia and reflected anteriorly gaining access to the lateral cortex of the femur. Next, a 135-degree jig was used to place a threaded guidewire through the lateral cortex of the femur up the femoral neck into the femoral head approaching a [id number] position. Once positioned, measurement was taken of this pin to determine hip screw length. The step reamer was then passed over this guidewire. Next, a 135-degree 3-hole sideplate with 85 mm hip screw was inserted over the guidewire with a second pin placed first tacked as a derotation pin. Once the hip screw was fully seated, the threaded guidewires were removed and then three 4.5 mm cortical screws were placed through the plate into the proximal femur. At the completion of this, there was near anatomic alignment as seen on both AP and lateral C-arm images. The wound was then irrigated with bulb syringe, then closed in layers with 0 Vicryl for the fascia crissy, followed by 2-0 Vicryl and sandra for the skin. Xeroform gauze and tape dressing was applied to the lateral thigh. The patient was then transferred to recovery room in stable condition. There were no complications. The patient tolerated the procedure well. Job ID: [id number]
[2019-09-18 05:20] LABS: #Basophils 0.1 thou/uL (0.0-0.2); #Eosinphils 0.1 thou/uL (0.0-0.7); #Lymphocytes 1.1 thou/uL (1.20-3.40); #Monocytes 0.7 thou/uL (0.11-0.59); #Neutrophils 6.1 thou/uL (1.40-6.50); %Basophils 1.5 % (0.0-1.0); %Eosinophils 0.8 % (0.0-10.0); %Lymphocytes 13.4 % (21.0-51.0); %Monocytes 8.1 % (0.0-10.0); %Neutrophils 76.2 % (42.0-75.0); Hemoglobin 10.7 g/dL (12.0-16.0); Mean Corpuscular Hemoglobin 32.5 pg (27.0-31.0); Mean Corpuscular Volume 95.5 fL (78.0-98.0); Mean Platelet Volume 7.1 fL (7.4-10.4); Platelet Count 379 thou/uL (130-400); RBC Distribution Width 12.3 % (11.5-14.5)
[2019-09-18] MEDS: Ibuprofen 200 MG TAB PO SCH ×3 (05:56→21:11)
[2019-09-18] MEDS: CEFAZOLIN 2 GM in Premix Bag 1 BAG IVPB SCH ×2 (05:56→13:51)
[2019-09-18 05:58] LABS: Anion Gap 9 mmol/L (10-20); BUN (Urea Nitrogen) 16 mg/dL (9.8-20.1); Calc. Creatinine Clearance 36 mL/min (70-130); Calcium 8.1 mg/dL (7.8-10.44); Carbon Dioxide 27 mmol/L (23-31); Chloride 105 mmol/L (98-107); Estimated GFR-MDRD 64; Glucose 86 mg/dL (83-110); Magnesium 1.9 mg/dL (1.6-2.6); Phosphorus 3.9 mg/dL (2.3-4.7); Potassium 3.9 mmol/L (3.5-5.1); Sodium 137 mmol/L (136-145)
[2019-09-18] MEDS: Lisinopril 20 MG TAB PO SCH ×2 (08:43→21:12)
[2019-09-18] MEDS: Polyethylene Glycol 3350 17 GM Packet PO SCH (08:43)
[2019-09-18] MEDS: Aspirin 81 mg Enteric Coated Tablet PO SCH ×2 (08:43→21:12)
[2019-09-18] MEDS: Amlodipine 5 MG TAB PO SCH (08:43)
[2019-09-18] MEDS: traMADol HCl 50 MG TAB PO PRN (08:44)
[2019-09-18] MEDS: Senokot S 8.6-50 MG TAB PO SCH ×2 (08:44→21:10)
--- NOTE | 2019-09-18 14:40 | PRG ---
DATE OF SERVICE: 09/18/2019 SUBJECTIVE: The patient remains on the surgical floor. The patient is postop day #1, status post open reduction and internal fixation of left intertrochanteric femur fracture. The patient reports that her pain is well controlled at this time. The patient was able to work with Physical Therapy earlier today and ambulate to the restroom. The patient is tolerating a regular diet and voices no complaints or concerns at this time. OBJECTIVE: VITAL SIGNS: Blood pressure 134/62, temperature 97.9, pulse 79, respirations 16, SpO2 of 96% on room air. GENERAL: Elderly appearing female, awake, alert, in no distress. RESPIRATORY: Equal chest rise and fall. No respiratory distress. Breath sounds clear. CARDIAC: Regular rate. Regular rhythm. ABDOMEN: Soft, nontender, nondistended. EXTREMITIES: Left hip dressing is clean, dry, and intact. No focal deficits. Distal pulses intact. LABORATORY DATA: WBC 8.0, RBC 3.30, hemoglobin 10.7, hematocrit 31.5, platelets 379. Sodium 137, potassium 3.9, chloride 105, BUN 16, creatinine 0.84, glucose 86, calcium 8.1, phosphorus 3.9, magnesium 1.9. DIAGNOSTICS: There are no new diagnostics to review today. ASSESSMENT: 1. Status post mechanical fall from standing. 2. Postop day #1, open reduction and internal fixation of left intertrochanteric femur fracture. 3. History of hypertension, controlled. PLAN: Continue supportive care. We will stop IV maintenance fluids as the patient is tolerating a regular diet. We will discontinue the patient's Harris catheter. We will continue to have the patient work with Physical and Occupational Therapy. The patient will be placed on aspirin b.i.d. for DVT prophylaxis and also mechanical DVT prophylaxis. The plan was discussed with the patient and family, who agrees. The patient was examined by Dr. Petersen during morning rounds. Job ID: [id number]
[2019-09-18] MEDS: Acetaminophen 500 MG TAB PO SCH ×2 (18:11→23:33)
--- NOTE | 2019-09-18 22:16 | PRG ---
DATE OF SERVICE: 09/18/2019 SUBJECTIVE: The patient was seen this evening during rounds. She was sitting up in bed with no signs of acute distress. She reported her pain is well controlled and she had a good day working with physical therapy and she was ready to go to sleep. OBJECTIVE: VITAL SIGNS: Temperature 98.6, pulse 77, respirations 16, oxygen saturation 95% on room air, blood pressure 118/73. GENERAL: Well-appearing elderly female, lying in bed with no signs of acute distress. PULMONARY: Equal chest rise and fall. No signs of acute respiratory distress. ASSESSMENT: 1. Status post mechanical fall from standing. 2. Left intertrochanteric femur fracture, status post repair. 3. History of hypertension. PLAN: Continue current diet and pain regimen. Continue physical and occupational therapy. Continue home medications. The patient is pending placement in acute rehab facility. Job ID: [id number]
[2019-09-19] MEDS: Ibuprofen 200 MG TAB PO SCH ×3 (05:32→22:06)
[2019-09-19] MEDS: Acetaminophen 500 MG TAB PO SCH ×4 (05:32→23:09)
[2019-09-19 05:42] LABS: #Basophils 0.1 thou/uL (0.0-0.2); #Eosinphils 0.1 thou/uL (0.0-0.7); #Lymphocytes 0.9 thou/uL (1.20-3.40); #Monocytes 0.6 thou/uL (0.11-0.59); #Neutrophils 4.8 thou/uL (1.40-6.50); %Basophils 1.7 % (0.0-1.0); %Eosinophils 1.5 % (0.0-10.0); %Lymphocytes 13.8 % (21.0-51.0); %Monocytes 8.6 % (0.0-10.0); %Neutrophils 74.4 % (42.0-75.0); Hemoglobin 10.1 g/dL (12.0-16.0); Mean Corpuscular HGB CONC 33.3 g/dL (32.0-36.0); Mean Corpuscular Hemoglobin 31.5 pg (27.0-31.0); Mean Corpuscular Volume 94.6 fL (78.0-98.0); Mean Platelet Volume 7.2 fL (7.4-10.4); Platelet Count 397 thou/uL (130-400); RBC Distribution Width 12.3 % (11.5-14.5); Red Blood Cell (RBC) Count 3.21 mill/uL (4.20-5.40); White Blood Cell (WBC) Count 6.4 thou/uL (4.8-10.8)
[2019-09-19] MEDS: Lisinopril 20 MG TAB PO SCH ×2 (09:32→20:13)
[2019-09-19] MEDS: Amlodipine 5 MG TAB PO SCH (09:32)
[2019-09-19] MEDS: Senokot S 8.6-50 MG TAB PO SCH ×2 (09:32→20:13)
[2019-09-19] MEDS: Polyethylene Glycol 3350 17 GM Packet PO SCH (09:32)
[2019-09-19] MEDS: Aspirin 81 mg Enteric Coated Tablet PO SCH ×2 (09:32→20:13)
[2019-09-19] MEDS: traMADol HCl 50 MG TAB PO PRN (09:33)
--- NOTE | 2019-09-19 17:21 | PRG ---
DATE OF SERVICE: 09/19/2019 SUBJECTIVE: The patient remains on the surgical floor. The patient is postop day #2, status post open reduction and internal fixation of the left intertrochanteric femur fracture. The patient's pain is well controlled at this time. The patient voices no complaints or concerns. The patient is tolerating a regular diet. The patient continues to work very well with physical therapy. OBJECTIVE: VITAL SIGNS: Blood pressure 130/75, temperature 98.6, pulse 90, respirations 16, SpO2 of 97% on room air. GENERAL: Elderly appearing female, well-appearing, awake, alert, in no distress. RESPIRATORY: Equal chest rise and fall. Breath sounds clear. No respiratory distress. CARDIAC: Regular rate. Regular rhythm. ABDOMEN: Soft, nontender, nondistended. EXTREMITIES: Left hip dressing is clean, dry, and intact. No focal deficits. Distal pulses intact. No pedal edema. LABORATORY DATA: WBC 6.4, RBC 3.21, hemoglobin 10.1, hematocrit 30.4, platelets 397. DIAGNOSTICS: There are no new diagnostics to review today. ASSESSMENT: 1. Status post mechanical fall from standing. 2. Postop day #2, open reduction and internal fixation of left intertrochanteric femur fracture. 3. History of hypertension, controlled. PLAN: Continue supportive care. Continue regular diet as tolerated. Continue to have Physical and Occupational Therapy work with the patient. Continue mechanical and chemical DVT prophylaxis. The patient is pending placement to inpatient rehab as the patient lives at home alone. The patient was examined by Dr. Petersen during morning rounds. The plan was discussed with the patient and family, who agrees. Job ID: [id number]
--- NOTE | 2019-09-20 01:33 | PRG ---
DATE OF SERVICE: 09/19/2019 SUBJECTIVE: The patient was seen this evening during rounds. She was resting comfortably in bed and asleep. Nursing reported no acute events. OBJECTIVE: VITAL SIGNS: Temperature 98.9, pulse 82, respirations 16, oxygen saturation 95% on room air, blood pressure 121/65. GENERAL: A well-appearing female, lying in bed with no signs of acute distress. PULMONARY: Equal chest rise and fall. No signs of acute respiratory distress. ASSESSMENT: 1. Status post mechanical fall. 2. Left intertrochanteric femur fracture, status post repair. 3. History of hypertension. PLAN: Continue current physical and occupational therapy. Continue current diet and pain regimen. She is pending placement at a rehab facility at this time. She is ready for discharge. Job ID: [id number]
[2019-09-20 05:52] LABS: #Basophils 0.1 thou/uL (0.0-0.2); #Eosinphils 0.1 thou/uL (0.0-0.7); #Monocytes 0.5 thou/uL (0.11-0.59); #Neutrophils 4.5 thou/uL (1.40-6.50); %Basophils 1.9 % (0.0-1.0); %Lymphocytes 16.3 % (21.0-51.0); %Monocytes 7.8 % (0.0-10.0); %Neutrophils 72.1 % (42.0-75.0); Mean Corpuscular HGB CONC 32.7 g/dL (32.0-36.0); Mean Corpuscular Hemoglobin 31.2 pg (27.0-31.0); Mean Corpuscular Volume 95.4 fL (78.0-98.0); Mean Platelet Volume 7.3 fL (7.4-10.4); Platelet Count 438 thou/uL (130-400); RBC Distribution Width 12.3 % (11.5-14.5); Red Blood Cell (RBC) Count 3.22 mill/uL (4.20-5.40); White Blood Cell (WBC) Count 6.2 thou/uL (4.8-10.8)
[2019-09-20] MEDS: Acetaminophen 500 MG TAB PO SCH ×4 (05:58→23:42)
[2019-09-20] MEDS: Ibuprofen 200 MG TAB PO SCH ×3 (05:58→23:42)
[2019-09-20] MEDS: Aspirin 81 mg Enteric Coated Tablet PO SCH ×2 (09:46→20:02)
[2019-09-20] MEDS: Amlodipine 5 MG TAB PO SCH (09:46)
[2019-09-20] MEDS: Lisinopril 20 MG TAB PO SCH ×2 (09:46→20:02)
[2019-09-20] MEDS: Polyethylene Glycol 3350 17 GM Packet PO SCH (09:46)
[2019-09-20] MEDS: Senokot S 8.6-50 MG TAB PO SCH ×2 (09:46→20:03)
--- NOTE | 2019-09-20 18:11 | PRG ---
DATE OF SERVICE: 09/20/2019 SUBJECTIVE: The patient remains on the surgical floor. The patient is postop day #3, status post open reduction and internal fixation of left intertrochanteric femur fracture. The patient progressed well overnight with voices, no complaints or concerns. The patient's pain continues to be well controlled at this time. The patient has been able to walk and work very well with physical therapy. The patient continues to tolerate a regular diet. OBJECTIVE: VITAL SIGNS: Temp 98.5, pulse 76, respirations 16, SpO2 of 96% on room air, and blood pressure 144/71. GENERAL: Elderly, well-appearing female, awake, alert, no distress. RESPIRATORY: Equal chest rise and fall, no respiratory distress. Bilateral breath sounds equal and clear. CARDIAC: Regular rate. Regular rhythm. ABDOMEN: Soft, nontender, and nondistended. EXTREMITIES: Left hip dressing is clean, dry, and intact. No focal deficits. Distal pulses intact. No pedal edema. LABORATORY DATA: WBC 6.2, RBC 3.22, hemoglobin 10.0, hematocrit 30.8, and platelets 438. DIAGNOSTICS: There are no diagnostics to review today. ASSESSMENT: 1. Status post ground level fall. 2. Postop day #3, open reduction and internal fixation of left intertrochanteric femur fracture. 3. History of hypertension, controlled. PLAN: Continue supportive care. Continue regular diet as tolerated. Continue to have Physical and Occupational Therapy work with the patient. Continue mechanical DVT prophylaxis. The patient is pending placement to inpatient rehab versus [facility] facility as the patient lives at home alone. The patient was examined by Dr. Petersen, during morning rounds. The plan was discussed with the patient, who agrees. Job ID: [id number]
--- NOTE | 2019-09-20 23:38 | PRG ---
DATE OF SERVICE: 09/20/2019 SUBJECTIVE: The patient was seen this evening, sitting up in bed with no signs of acute distress. She reported pain is well controlled and has been working with Physical and Occupational Therapy. OBJECTIVE: VITAL SIGNS: Temperature 98.6, pulse 81, respirations 16, oxygen saturation 98% on room air, and blood pressure 123/56. GENERAL: Well-appearing elderly female, sitting up in bed with no signs of acute distress. PULMONARY: Equal chest rise and fall. No signs of acute respiratory distress. ASSESSMENT: 1. Status post mechanical fall from standing. 2. Left intertrochanteric femur fracture, status post repair. 3. History of hypertension. PLAN: Continue current diet and pain regimen. Continue physical and occupational therapy. Continue home medications. The patient is pending discharge to [facility] tomorrow. Job ID: [id number]
[2019-09-21] MEDS: Ibuprofen 200 MG TAB PO SCH ×2 (05:34→12:12)
[2019-09-21] MEDS: Acetaminophen 500 MG TAB PO SCH ×2 (05:34→12:11)
[2019-09-21] MEDS: Polyethylene Glycol 3350 17 GM Packet PO SCH (08:01)
[2019-09-21] MEDS: Aspirin 81 mg Enteric Coated Tablet PO SCH (08:01)
[2019-09-21] MEDS: Lisinopril 20 MG TAB PO SCH (08:01)
[2019-09-21] MEDS: Senokot S 8.6-50 MG TAB PO SCH (08:02)
[2019-09-21] MEDS: Amlodipine 5 MG TAB PO SCH (08:02)
[2019-09-21 11:11] VITALS: BP 153/64; TEMP 98.2
--- NOTE | 2019-09-23 11:38 | DIS ---
DATE OF ADMISSION: 09/17/2019 DATE OF DISCHARGE: 09/21/2019 CONSULTATIONS: Orthopedics, Dr. Ortiz and Dr. Gao. PROCEDURE: Open reduction and internal fixation of left intertrochanteric femur fracture. HOSPITAL COURSE: The patient is an 89-year-old woman, who was brought to the emergency department after having a ground level fall. She underwent evaluation and examination and was noted to have the above injury. She underwent her procedure and tolerated this procedure well. Over the next several days, she began working with physical and occupational therapy and she progressed well. She is from [place] and requested placement in the [facility] which was arranged. At time of discharge, the patient was tolerating a diet, her pain was controlled, she was progressing with physical and occupational therapy, and her bowel function had returned. The patient will follow up with Dr. Gao in his clinic in 14 days or sooner as needed. The patient may follow up with the Trauma Clinic as needed and was advised to follow up with her primary care provider also. Job ID: [id number]
== END 2019-09-21 14:45 | disposition swing bed (61) | DRG 482 ==
LOC: ERS 23:21 → SURG A 09-17 00:04
PROVIDERS: ADMIT Specialist; ATTEND Specialist
PROC: 0QS704Z Reposition Left Upper Femur with Internal Fixation Device, Open Approach (ICD-10-PCS; principal; 2019-09-17)
DX: S72.142A Displaced intertrochanteric fracture of left femur, initial encounter for closed fracture (principal); W18.30XA Fall on same level, unspecified, initial encounter; Z79.82 Long term (current) use of aspirin; Z79.899 Other long term (current) drug therapy; I10 Essential (primary) hypertension; Z98.42 Cataract extraction status, left eye; Z98.41 Cataract extraction status, right eye
CPT/HCPCS: 36415; 71045; 72170; 76000; 80048; 80053; 83735; 84100; 85025; 90471; 90662; 93005; 96374; C1713; C1769; G0008; G0390; J0131; J0360; J0690; J2001; J2704; J3010